=== PATIENT | male | born 1945 | race Caucasian/White ===

== ENCOUNTER → 2017-03-15 | Outpatient (CLI) | payer MEDICARE, OTHER ==
[2015-07-14 13:00] VITALS: BP 165/91
[~2017-03-15] MED LIST: ASPI-482 PO; ASPI325T8 PO; HYDR-965 PO; MULT1TAB52 PO; SEA-OMEGA 50 C1 EACH PO; SIMV20TA3 PO; [UNRECOGNIZED DRUG - CODE] PO
--- NOTE | 2017-03-15 14:36 | KCIC ---
EXAM: Chest, 2 views. HISTORY: Chest pain. COMPARISON: None. FINDINGS: Frontal and lateral views of the chest are obtained. There is no infiltrate, effusion or pneumothorax. The heart is normal in size. There is right middle lobe and lingular atelectasis or pleural-parenchymal scarring. There is chronic deformity of the right third and fourth ribs. IMPRESSION: Suspected right middle lobe and lingular atelectasis or pleural-parenchymal scarring. The possibility of interstitial infiltrate is not completely excluded. Electronically signed by: Sofia Bello MD (03/15/2017 2:32 PM) [place] [id number]
== END | disposition home or self-care (01) ==
LOC: KCIC 14:06
PROVIDERS: ATTEND Family Medicine
DX: R07.9 Chest pain, unspecified (principal)
CPT/HCPCS: 71020

== ENCOUNTER → 2017-03-24 | Outpatient (CLI) | payer MEDICARE, OTHER ==
[2015-07-14 13:00] VITALS: BP 165/91
--- NOTE | 2017-03-24 10:16 | KCIC ---
EXAM: Chest CT without intravenous contrast. HISTORY: Atelectasis or scarring. Abnormal chest radiograph. TECHNIQUE: Computed tomographic images of the chest were obtained without contrast. Multiplanar reformatting was performed. *One or more of the following individualized dose reduction techniques were utilized for this examination: 1. Automated exposure control. 2. Adjustment of the mA and/or kV according to patient size. 3. Use of iterative reconstruction technique. COMPARISON: Chest radiograph dated 03/15/2017. 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 There is no pneumothorax or pleural effusion. There is groundglass opacity within the lingula, right middle lobe and bilateral lower lobes, the appearance of which favors atelectasis or scarring. There is a 3 mm granuloma within the right upper lobe. There is a 3 mm groundglass opacity within the right middle lobe along the pleural fissure, likely due to volume averaging of a fissural lymph node. The heart is normal in size. There is coronary artery atherosclerosis. No pathologically enlarged lymph node is seen. The upper abdomen is grossly unremarkable. There are degenerative changes throughout the thoracic spine. IMPRESSION: 1. Nonspecific groundglass opacity within the right middle lobe, lingula and bilateral lower lobes, the appearance of which favors atelectasis or scarring. There is no infiltrate or suspicious pulmonary nodule. 2. 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 Electronically signed by: Sofia Bello MD (03/24/2017 10:13 AM) [id number]
== END | disposition home or self-care (01) ==
LOC: KCIC CT 09:35
PROVIDERS: ATTEND Family Medicine
DX: Q79.8 Other congenital malformations of musculoskeletal system (principal)
CPT/HCPCS: 71250